=== PATIENT | male | born 1995 | race Hispanic/Latino ===

== ENCOUNTER → 2018-08-02 | Day surgery (SDC) | payer BC ==
[~2018-08-02] MED LIST: BUPIVACAINE HCL 0.5% INJ 30 ML VIAL INJ ONE; CEFAZOLIN SOD 1 GM/NS 50ML 100 ML IV ONE; DEXAMETHASONE SOD PHOS INJ 4 MG/ML VIAL ONE; FENTANYL CITRATE/PF 100MCG/2 ML INJ ONE; KETOROLAC TROMETHAMINE 30 MG/ML VIAL ONE; LIDOCAINE HCL 2% LOCAL INJ 5 ML SDV VIAL INJ ONE; MIDAZOLAM HCL 2 MG/2 ML VIAL ONE; ONDANSETRON HCL INJ 2MG/ML 2ML 2 MG/ML VIAL ONE; PROPOFOL IV EMULSION 10 MG/ML 20 ML VIAL ONE; SEVOFLURANE INHAL SOLN 250 ML PEN BTL ONE
[2018-08-02 12:20] VITALS: BP 124/76
--- NOTE | 2018-08-03 01:53 | Operative Report ---
DATE OF PROCEDURE: 08/02/2018 SURGEON: Minh Mehta MD PREOPERATIVE DIAGNOSIS: Foreign body in the volar surface of the left arm. POSTOPERATIVE DIAGNOSIS: Foreign body in the volar surface of the left arm. OPERATION/PROCEDURE PERFORMED: The patient underwent removal of the foreign body from the left thumb. DERMATOLOGICAL SURGEON: There was no loan assistant. ANESTHESIA: General endotracheal intubation anesthesia. IV FLUIDS: Per the Anesthesia record. BRIEF DISCUSSION OF THE PATIENT'S OPERATIVE PROCEDURE: Mr. Burns was taken to the operating room, placed in the supine position on the operating table. Following the induction of general anesthesia as well as endotracheal intubation, the patient's left upper extremity was examined under anesthesia. He was found to have a normal-appearing wrist and hand. Examination of the thumb demonstrated no gross abnormality. Palpation of the thumb's volar surface demonstrated a subcutaneous mass. Fluoroscopic evaluation of the thumb demonstrated a piece of metal in the subcutaneous tissues of the thumb. The patient's left upper extremity was prepped and draped in the standard surgical fashion. An incision was created directly over the foreign body. This incision was carried through the skin only. Blunt dissection was used to deepen the incision and the foreign body was easily identified. Retractors were used to isolate the foreign body and the foreign body was removed without difficulty. The wound was then copiously irrigated. The wound was closed in a single layer fashion. Sterile dressings were applied, and the patient was then awakened and taken to the Postanesthesia Care Unit in stable condition. Minh Mehta MD EBR/ULICESL /[id number]
== END | disposition home or self-care (01) ==
LOC: OR 08:35
PROVIDERS: ATTEND Specialist
DX: S60.352A Superficial foreign body of left thumb, initial encounter (principal); M65.342 Trigger finger, left ring finger; F17.210 Nicotine dependence, cigarettes, uncomplicated; X58.XXXA Exposure to other specified factors, initial encounter; Z68.32 Body mass index [BMI] 32.0-32.9, adult
CPT/HCPCS: 76000; 10120; J0690; J1100; J1885; J2001; J2250; J2405; J2704

== ENCOUNTER → 2021-05-15 | Day surgery (SDC) | payer BC ==
[2021-05-14 08:18] LABS: BASOPHILS % 0.5 % (0.0-1.0); EOSINOPHILS # (AUTO) 0.2 (0.0-0.4); EOSINOPHILS % 2.6 % (0.0-6.0); HEMATOCRIT 46.5 % (38.2-49.6); HEMOGLOBIN 15.1 g/dL (14.0-18.0); LYMPHOCYTES # (AUTO) 1.9 (1.0-3.2); LYMPHOCYTES % 22.8 % (18.0-39.1); MEAN CORPUSCULAR HGB CONC 32.5 g/dL (31-35); MEAN CORPUSCULAR VOLUME 92.3 fL (81-99); MONOCYTES # (AUTO) 0.7 (0.2-0.8); MONOCYTES % 8.2 % (4.4-11.3); NEUTROPHILS # (AUTO) 5.5 (2.1-6.9); NEUTROPHILS % 65.4 % (38.7-80.0); PLATELET COUNT 188 x10e3/uL (140-360); RED BLOOD COUNT 5.04 x10e6/uL (4.3-5.7); RED CELL DISTRIBUTION WIDTH 12.4 % (11.7-14.4)
[~2021-05-15] MED LIST changes: +BUPIVACAINE 0.25% 30ML SDV ONE; -BUPIVACAINE HCL 0.5% INJ 30 ML VIAL INJ ONE; -CEFAZOLIN SOD 1 GM/NS 50ML 100 ML IV ONE; -DEXAMETHASONE SOD PHOS INJ 4 MG/ML VIAL ONE; +GLYCOPYRROLATE INJ 0.2 MG/ML VIAL ONE; -KETOROLAC TROMETHAMINE 30 MG/ML VIAL ONE; +LIDOCAINE 1% W/EPINEPHRINE 20 ML VIAL ONE; -ONDANSETRON HCL INJ 2MG/ML 2ML 2 MG/ML VIAL ONE; +POVIDONE IODINE 0.05% 0.05 % ML PO ONE; -SEVOFLURANE INHAL SOLN 250 ML PEN BTL ONE
[2021-05-15 12:15] VITALS: BP 136/87
== END | disposition home or self-care (01) ==
LOC: OR 06:38
PROVIDERS: ATTEND Surgery
DX: K40.90 Unilateral inguinal hernia, without obstruction or gangrene, not specified as recurrent (principal); F41.9 Anxiety disorder, unspecified; Z01.812 Encounter for preprocedural laboratory examination; Z20.822 Contact with and (suspected) exposure to COVID-19
CPT/HCPCS: 36415; 49505; 85025; C1781; J2001; J2250; J2704; J3010; U0002